=== PATIENT | female | born 1990 | race Caucasian/White ===

== ENCOUNTER 2018-02-24 12:31 | Emergency (ER) | payer SELFPAY, OTHER ==
[2018-02-24 15:05] LABS: ADD MAN DIFF? NO
[2018-02-24 15:08] LABS: BASO % 0 % (0-3); EOS # 0.3 x10^3/uL (0.0-0.7); EOS % 3 % (0-3); HEMOGLOBIN 13.5 g/dL (12.0-15.5); LYMPH # 1.4 x10^3/uL (1.0-4.8); LYMPH % 14 % (24-48); MEAN CORPUSCULAR HEMOGLOBIN 28 pg (25-35); MEAN CORPUSCULAR HGB CONC 33 g/dL (31-37); MEAN CORPUSCULAR VOLUME 86 fL (79-100); MONO # 0.5 x10^3/uL (0.0-1.1); MONO % 5 % (0-9); NEUT # 7.9 x10^3uL (1.8-7.7); NEUT % 78 % (31-73); PLATELET COUNT 233 x10^3/uL (140-400); RED CELL DISTRIBUTION WIDTH 14.4 % (11.5-14.5); WHITE BLOOD COUNT 10.1 x10^3/uL (4.0-11.0)
[2018-02-24 15:19] LABS: ANION GAP 10 (6-14); BLOOD UREA NITROGEN 14 mg/dL (7-20); BUN/CREATININE RATIO 18 (6-20); CALCIUM 9.4 mg/dL (8.5-10.1); CARBON DIOXIDE 26 mmol/L (21-32); CHLORIDE 103 mmol/L (98-107); CREATININE 0.8 mg/dL (0.6-1.0); GFR 85.4; GLUCOSE 103 mg/dL (70-99); POTASSIUM 4.1 mmol/L (3.5-5.1); SODIUM 139 mmol/L (136-145)
[2018-02-24 15:22] LABS: URINE HCG POC HCG NEGATIVE (Negative)
[2018-02-24 15:25] LABS: ALBUMIN 3.9 g/dL (3.4-5.0); ALBUMIN/GLOBULIN RATIO 0.9 (1.0-1.7); ALK PHOS 84 U/L (46-116); ALT (SGPT) 22 U/L (14-59); AST (SGOT) 16 U/L (15-37); TOTAL BILIRUBIN 0.2 mg/dL (0.2-1.0); TOTAL PROTEIN 8.1 g/dL (6.4-8.2)
[2018-02-24 15:34] LABS: BILIRUBIN,URINE NEGATIVE (NEG); CLARITY,URINE CLEAR; COLOR,URINE YELLOW; GLUCOSE,URINE NEGATIVE (NEG); NITRITE,URINE NEGATIVE (NEG); PH,URINE 6.5; PROTEIN,URINE NEGATIVE (NEG-TRACE); UROBILINOGEN,URINE 0.2 mg/dL (0.2 mg/dL)
[2018-02-24 15:53] LABS: BACTERIA,URINE MANY /HPF (0-FEW); SQUAMOUS EPITHELIAL CELL,UR MOD /LPF; WBC,URINE OCC /HPF (0-4)
== END 2018-02-24 16:15 | disposition home or self-care (01) ==
LOC: ER 12:31
DX: R55 Syncope and collapse (principal); N39.0 Urinary tract infection, site not specified; F41.9 Anxiety disorder, unspecified; F31.9 Bipolar disorder, unspecified
CPT/HCPCS: 36415; 80053; 81001; 81025; 85025; 93005; 99285-25

== ENCOUNTER → 2018-04-28 | Outpatient (CLI) | payer OTHER | END | disposition home or self-care (01) | LOC: KCIC MRI 13:33 | DX: H53.8 Other visual disturbances (principal) | CPT/HCPCS: 70551 ==

== ENCOUNTER 2018-07-01 20:24 | Emergency (ER) | payer OTHER ==
[~2018-07-01] VITALS: Ht 154.9 cm; Wt 104.3 kg
[~2018-07-01 20:24] MED LIST: ARIP2TAB3 PO; BUPR150T8 PO; LORA0.5T96 PO; NITR100C62 PO; RISP2TAB33 PO
--- NOTE | 2018-07-01 21:43 | PHYS DOC ---
Past Medical History Past Medical History: Anxiety, Bipolar Past Surgical History: No Surgical History Alcohol Use: None Drug Use: None Adult General Chief Complaint Chief Complaint: MULTIPLE COMPLAINTS [facility] HPI Patient is a 27 year old female who presents with multiple complaints. The last 12 years patient has had blurred vision. Floaters. Sometimes completely black out vision and bilateral hand tingling. Patient states this happens to 3 times a week. Patient sees a doctor at [facility] for primary care that would ordered an MRI of her head and patient states that the MRI stated that she just has headaches. Patient's visual acuities are 20/25 bilaterally, left eye, right eye. Patient denies nausea or vomiting. Patient denies headaches. She has a history of panic attacks, bipolar, depression, anxiety, and 3 C-sections. She has a family history of diabetes, lupus, and MS. She states that she is also sweating all the time. And has a scheduled appointment with a neurologist in August per her mother. Patient states that times she has become lightheaded and passes out. She states that this has been months since this is happened. Taste that she takes Prozac, Seroquel, lorazepam when necessary, and iron pills. Review of Systems Review of Systems Constitutional: Denies fever or chills [] Eyes: Denies change in visual acuity, redness, or eye pain [] HENT: Denies nasal congestion or sore throat [] Respiratory: Denies cough or shortness of breath [] Cardiovascular: No additional information not addressed in HPI [] GI: Denies abdominal pain, nausea, vomiting, bloody stools or diarrhea [] : Denies dysuria or hematuria [] Musculoskeletal: Denies back pain or joint pain [] Integument: Denies rash or skin lesions [] Neurologic: Denies headache, focal weakness or sensory changes [] All other systems were reviewed and found to be within normal limits, except as documented in this note. Allergies Allergies Allergies Coded Allergies Type Severity Reaction Last Updated Verified No Known Drug Allergies 09/18/14 No Physical Exam Physical Exam Constitutional: Well developed, well nourished, no acute distress, non-toxic appearance. [] HENT: Normocephalic, atraumatic, bilateral external ears normal, oropharynx moist, no oral exudates, nose normal. [] Eyes: PERRLA, EOMI, conjunctiva normal, no discharge. [] Neck: Normal range of motion, no tenderness, supple, no stridor. [] Cardiovascular:Heart rate regular rhythm, no murmur [] Lungs & Thorax: Bilateral breath sounds clear to auscultation [] Abdomen: Bowel sounds normal, soft, no tenderness, no masses, no pulsatile masses. [] Skin: Warm, dry, no erythema, no rash. [] Back: No tenderness, no CVA tenderness. [] Extremities: No tenderness, no cyanosis, no clubbing, ROM intact, no edema. [] Neurologic: Alert and oriented X 3, normal motor function, normal sensory function, no focal deficits noted. [] Psychologic: Affect normal, judgement normal, mood normal. [] Current Patient Data Vital Signs Vital Signs Date Time Temp Pulse Resp B/P (MAP) Pulse Ox O2 Delivery O2 Flow Rate FiO2 07/01/18 22:30 75 18 122/63 (82) 98 07/01/18 21:33 97.9 Room Air 97.9 Lab Values Laboratory Tests Test 07/01/18 21:17 07/01/18 21:23 07/01/18 22:05 Urine Opiates Screen Neg (NEG) Urine Methadone Screen Neg (NEG) Urine Barbiturates Neg (NEG) Urine Phencyclidine Screen Neg (NEG) Urine Amphetamine/Methamphetamine Neg (NEG) Urine Benzodiazepines Screen Neg (NEG) Urine Cocaine Screen Neg (NEG) Urine Cannabinoids Screen Neg (NEG) Urine Ethyl Alcohol Neg (NEG) POC Urine HCG, Qualitative Hcg negative (Negative) White Blood Count 8.3 x10^3/uL (4.0-11.0) Red Blood Count 4.47 x10^6/uL (3.50-5.40) Hemoglobin 12.8 g/dL (12.0-15.5) Hematocrit 37.8 % (36.0-47.0) Mean Corpuscular Volume 85 fL (79-100) Mean Corpuscular Hemoglobin 29 pg (25-35) Mean Corpuscular Hemoglobin Concent 34 g/dL (31-37) Red Cell Distribution Width 14.5 % (11.5-14.5) Platelet Count 238 x10^3/uL (140-400) Neutrophils (%) (Auto) 68 % (31-73) Lymphocytes (%) (Auto) 18 % (24-48) L Monocytes (%) (Auto) 6 % (0-9) Eosinophils (%) (Auto) 7 % (0-3) H Basophils (%) (Auto) 1 % (0-3) Neutrophils # (Auto) 5.6 x10^3uL (1.8-7.7) Lymphocytes # (Auto) 1.5 x10^3/uL (1.0-4.8) Monocytes # (Auto) 0.5 x10^3/uL (0.0-1.1) Eosinophils # (Auto) 0.6 x10^3/uL (0.0-0.7) Basophils # (Auto) 0.0 x10^3/uL (0.0-0.2) Sodium Level 137 mmol/L (136-145) Potassium Level 3.7 mmol/L (3.5-5.1) Chloride Level 103 mmol/L (98-107) Carbon Dioxide Level 26 mmol/L (21-32) Anion Gap 8 (6-14) Blood Urea Nitrogen 10 mg/dL (7-20) Creatinine 0.9 mg/dL (0.6-1.0) Estimated GFR (Cockcroft-Gault) 74.6 BUN/Creatinine Ratio 11 (6-20) Glucose Level 95 mg/dL (70-99) Calcium Level 9.6 mg/dL (8.5-10.1) Total Bilirubin 0.2 mg/dL (0.2-1.0) Aspartate Amino Transferase (AST) 10 U/L (15-37) L Alanine Aminotransferase (ALT) 16 U/L (14-59) Alkaline Phosphatase 77 U/L (46-116) Total Protein 7.9 g/dL (6.4-8.2) Albumin 3.7 g/dL (3.4-5.0) Albumin/Globulin Ratio 0.9 (1.0-1.7) L Laboratory Tests 07/01/18 22:05 Laboratory Tests 07/01/18 22:05 EKG EKG Sinus rhythm[] Interpretation Time: [address] Oliver Radiology/Procedures Radiology/Procedures CT head WO contrast[] Impressions: [facility] [address] [place] [address] IMAGING REPORT Signed PATIENT: MONTSERRAT CROWE ACCOUNT: [id number] : 1990 LOCATION: ER AGE: 27 SEX: F EXAM STATUS: REG ER ORD. PHYSICIAN: JAVI PITT APRN REASON: Syncopal Episodes PROCEDURE: CT HEAD WO CONTRAST CT HEAD WO CONTRAST History: BLURRED VISION, SYNCOPE Comparison: MRI brain exam April 28, 2018, no previous head CT available Technique: Noncontrast CT imaging was performed of the head. Exposure: One or more of the following individualized dose reduction techniques were utilized for this examination: 1. Automated exposure control 2. Adjustment of the mA and/or kV according to patient size 3. Use of iterative reconstruction technique. Findings: No acute extra-axial or parenchymal hemorrhage is identified. There is no significant intra-axial mass effect, midline shift, or extra-axial fluid collection. The cabrales-white differentiation of the major vascular territories is preserved. The ventricles, sulci, and cisterns are within normal limits in size and configuration. The mastoid air cells and the visualized paranasal sinuses are aerated. No acute calvarial abnormality is identified. Impression: 1. No acute intracranial abnormality is identified. Electronically signed by: Rm Macario MD (07/01/2018 10:24 PM) [facility] DICTATED and SIGNED BY: RM MACARIO MD DATE: 07/01/182222 Course & Med Decision Making Course & Med Decision Making Upon examination patient's NIH scale is negative. Patient is neurologically intact. Patient's examination is unremarkable. Patient does not have any tingling or numbness at this time. Patient denies a headache, nausea, vomiting, diarrhea, fever. Patient denies any blurred vision, black out vision, or floaters at this time. Patient denies any dizziness at this time. Lungs are clear to auscultation. Patient to get a CT of the head without contrast in the ED. patient's CT of the head shows no acute findings. Patient's MRI that was done back in April by her primary care showed no acute findings except for chronic migraine headaches. Patient's visual acuities are 20/25 bilaterally, right eye, left eye. Patient is alert and oriented. Patient currently having no symptoms. Patient has a steady gait. Patient to be discharged home with a referral to neurology and ophthalmology for continuation of care. [] Dragon Disclaimer Dragon Disclaimer This electronic medical record was generated, in whole or in part, using a voice recognition dictation system. Departure Departure Impression: Primary Impression: Visual acuity 20/25 Additional Impressions: Visual aura Visual disturbance Visual distortions Disposition: 01 HOME, SELF-CARE Condition: STABLE Referrals: WAYLON POLANCO APRN (PCP) DEBRA VALENCIA MD, THAD A MD Patient Instructions: Visual Disturbances Additional Instructions: Referrals for neurology and ophthalmology been placed. Follow-up as soon as possible. Problem Qualifiers JAVI PITT APRN Jul 01, 2018 21:43 CASSY OLIVER MD Jul 01, 2018 23:54
[2018-07-01 21:58] LABS: AMPHETAMINE/METHAMPHETAMINE NEG (NEG); BARBITURATES NEG (NEG); BENZODIAZEPINES NEG (NEG); CANNABINOIDS NEG (NEG); COCAINE NEG (NEG); METHADONE NEG (NEG); OPIATES NEG (NEG); PHENCYCLIDINE NEG (NEG)
--- NOTE | 2018-07-01 22:15 | EKG ---
[facility] [address] [place] [address] Test Date: 2018-07-01 Test Time: 21:49:03 Pat Name: MONTSERRAT CROWE Department: Room: Gender: F Leveler: SANJUANA : 1990 Requested By: JAVI PITT Order Number: [id number] Reading MD: Rocco Jonas MD Measurements Intervals [place] Rate: 64 P: 26 HI: 154 QRS: 48 QRSD: 72 T: 32 QT: 364 QTc: 379 Interpretive Statements SINUS RHYTHM Electronically Signed On 07-05-2018 10:35:01 CDT by Rocco Jonas MD
[2018-07-01 22:18] LABS: BASO % 1 % (0-3); EOS # 0.6 x10^3/uL (0.0-0.7); EOS % 7 % (0-3); HEMATOCRIT 37.8 % (36.0-47.0); HEMOGLOBIN 12.8 g/dL (12.0-15.5); LYMPH # 1.5 x10^3/uL (1.0-4.8); LYMPH % 18 % (24-48); MEAN CORPUSCULAR HEMOGLOBIN 29 pg (25-35); MEAN CORPUSCULAR HGB CONC 34 g/dL (31-37); MEAN CORPUSCULAR VOLUME 85 fL (79-100); MONO # 0.5 x10^3/uL (0.0-1.1); MONO % 6 % (0-9); NEUT # 5.6 x10^3uL (1.8-7.7); NEUT % 68 % (31-73); PLATELET COUNT 238 x10^3/uL (140-400); RED BLOOD COUNT 4.47 x10^6/uL (3.50-5.40); RED CELL DISTRIBUTION WIDTH 14.5 % (11.5-14.5); WHITE BLOOD COUNT 8.3 x10^3/uL (4.0-11.0)
[2018-07-01 22:26] LABS: CALCIUM 9.6 mg/dL (8.5-10.1); CREATININE 0.9 mg/dL (0.6-1.0); GFR 74.6; POTASSIUM 3.7 mmol/L (3.5-5.1)
--- NOTE | 2018-07-01 22:28 | RAD ---
CT HEAD WO CONTRAST History: BLURRED VISION, SYNCOPE Comparison: MRI brain exam April 28, 2018, no previous head CT available Technique: Noncontrast CT imaging was performed of the head. Exposure: One or more of the following individualized dose reduction techniques were utilized for this examination: 1. Automated exposure control 2. Adjustment of the mA and/or kV according to patient size 3. Use of iterative reconstruction technique. Findings: No acute extra-axial or parenchymal hemorrhage is identified. There is no significant intra-axial mass effect, midline shift, or extra-axial fluid collection. The cabrales-white differentiation of the major vascular territories is preserved. The ventricles, sulci, and cisterns are within normal limits in size and configuration. The mastoid air cells and the visualized paranasal sinuses are aerated. No acute calvarial abnormality is identified. Impression: 1. No acute intracranial abnormality is identified. Electronically signed by: Froilan Taylor MD (07/01/2018 10:24 PM) [facility]
[2018-07-01 22:30] VITALS: BP 122/63
[2018-07-01 22:31] LABS: ALBUMIN 3.7 g/dL (3.4-5.0); ALBUMIN/GLOBULIN RATIO 0.9 (1.0-1.7); TOTAL BILIRUBIN 0.2 mg/dL (0.2-1.0); TOTAL PROTEIN 7.9 g/dL (6.4-8.2)
== END 2018-07-01 22:56 | disposition home or self-care (01) ==
LOC: ER 20:24
DX: H53.8 Other visual disturbances (principal); H43.399 Other vitreous opacities, unspecified eye; R51 Headache; R20.2 Paresthesia of skin; F41.9 Anxiety disorder, unspecified; F31.9 Bipolar disorder, unspecified
CPT/HCPCS: 36415; 70450; 80053; 80307; 81025; 85025; 93005; 99285-25; G0479

== ENCOUNTER 2018-09-03 07:37 | Outpatient (CLI) | payer OTHER ==
[2018-09-03] MEDS ORDERED: LIDOCAINE WITH 8.4% SOD BICARB 3 ML DISP.SYRIN. INJ ONE (07:45)
[2018-09-03 09:47] VITALS: BP 95/52
[2018-09-03 10:00] VITALS: BP 100/53
[2018-09-03 10:27] LABS: CSF PROTEIN 31.2 mg/dL (15.0-45.0)
[2018-09-03 10:30] VITALS: BP 101/43
[2018-09-03 10:43] LABS: CSF CLARITY CLEAR; CSF COLOR COLORLESS; CSF RBC COUNT 10; CSF WBC COUNT 0
--- NOTE | 2018-09-03 17:01 | RAD ---
Fluoroscopically guided lumbar puncture, 09/03/2018: HISTORY: Blurred vision, numbness, possible multiple sclerosis Under local anesthesia, aseptic conditions and fluoroscopic guidance a lumbar puncture was performed at the L2-3 level utilizing a 20-gauge spinal needle. Good clear CSF flow was obtained. The opening pressure was measured at 12 cm of water. A total of 10 cc of CSF was removed and sent to the lab for appropriate studies. The spinal needle was then removed and hemostasis obtained. 1.7 minutes of fluoroscopy time was utilized. One fluoroscopic spot image was recorded. The patient tolerated the procedure well. She will be monitored by nursing personnel for several hours and then discharged if no problems develop. Electronically signed by: Isidoro Pereyra MD (09/03/2018 4:57 PM) [facility]
[2018-09-06 16:16] LABS: ALBUMIN,CSF 16 mg/dL (11-48); ALBUMIN,SERUM 4.2 g/dL (3.5-5.5); CSF IGG INDEX 0.5 (0.0-0.7); IGG,SERUM 1199 mg/dL (700-1600)
[2018-09-13 07:11] LABS: VIRAL CULT FINAL No virus isolated. (.)
== END 2018-09-03 10:40 | disposition home or self-care (01) ==
LOC: RAD 07:37
PROVIDERS: ATTEND Psychiatry & Neurology Neurology with Special Qualifications in Child Neurology
DX: G35 Multiple sclerosis (principal); H53.8 Other visual disturbances; F41.9 Anxiety disorder, unspecified; F31.9 Bipolar disorder, unspecified; H43.399 Other vitreous opacities, unspecified eye; Z79.899 Other long term (current) drug therapy
CPT/HCPCS: 36415; 62270; 82787; 82945; 83873; 83916; 84157; 87071; 87075; 87102; 87252; 89051

== ENCOUNTER → 2020-01-10 | Outpatient (CLI) | payer OTHER ==
--- NOTE | 2020-01-10 14:16 | KCIC ---
CHEST PA LATERAL History: Shortness of air Comparison: None. Findings: 2 views of the chest are submitted. There is no dependent pleural fluid or pneumothorax. Cardiac silhouette is considered within normal limits given technique. There is some mild airspace opacity of the medial right lung base. Impression: 1. There is mild airspace opacity of the medial right lung base possibly mild atelectasis or infiltrate of the right middle lobe. Electronically signed by: Froilan Taylor MD (01/10/2020 2:12 PM) [facility]
== END | disposition home or self-care (01) ==
LOC: KCIC 13:45
PROVIDERS: ATTEND Internal Medicine Critical Care Medicine
DX: R06.02 Shortness of breath (principal)
CPT/HCPCS: 71046

== ENCOUNTER → 2020-01-24 | Outpatient (CLI) | payer OTHER ==
[2020-01-24] MEDS: IOHEXOL 350 MG/ML 100 ML VIAL. IV ONE (12:11)
--- NOTE | 2020-01-24 12:27 | RAD ---
Chest CTA History: Chest pain, shortness of air Technique: After bolus of intravenous contrast, CT imaging was performed of the chest. Multiplanar reconstruction images to include MIP reconstruction images are submitted. Exposure: One or more of the following individualized dose reduction techniques were utilized for this examination: 1. Automated exposure control 2. Adjustment of the mA and/or kV according to patient size 3. Use of iterative reconstruction technique. Comparison: None Findings: There is significant motion degradation, also suboptimal contrast opacification of the more distal branches of pulmonary arteries. No central pulmonary embolism is identified such as in the main or proximal segmental branches, limited accurate characterization of the smaller and more distal branches. There is no pericardial or pleural fluid, lobar infiltrate or pneumothorax. Major airways are patent. There is a small 0.3 cm right middle lobe nodule less likely be of clinical significance in a patient this age. Accurate characterization of the ascending thoracic aorta is limited due to motion. It would be difficult to exclude a dissection flap of the tubular ascending thoracic aorta on this exam although findings more likely to be artifactual. No dissection flap is identified of the descending thoracic aorta. Heart is borderline in size. There is probable hepatic steatosis. There are some small superior right renal calculi, largest estimated 0.4 cm. No significantly enlarged nodes are identified of the chest. There is splenomegaly. Impression: 1. Exam is degraded by motion, no convincing central pulmonary embolism. Accurate characterization of the ascending thoracic aorta is limited due to motion, cannot accurately exclude dissection flap of the ascending thoracic aorta although no significant pericardial fluid. 2. There is probable hepatic steatosis. There is splenomegaly. 3. There is small superior right renal calculi. Electronically signed by: Froilan Taylor MD (01/24/2020 12:24 PM) [id number]
== END ==
LOC: CT 11:35
PROVIDERS: ATTEND Internal Medicine Critical Care Medicine
DX: R07.9 Chest pain, unspecified (principal); R16.1 Splenomegaly, not elsewhere classified; N20.0 Calculus of kidney
CPT/HCPCS: 71275; Q9967

== ENCOUNTER → 2020-12-07 | Outpatient (CLI) | payer OTHER ==
[2020-12-07 11:41] LABS: BASO # 0.1 x10^3/uL (0.0-0.2); BASO % 1 % (0-3); EOS # 0.2 x10^3/uL (0.0-0.7); EOS % 2 % (0-3); HEMATOCRIT 36.7 % (36.0-47.0); HEMOGLOBIN 11.8 g/dL (12.0-15.5); LYMPH # 1.2 x10^3/uL (1.0-4.8); LYMPH % 18 % (24-48); MEAN CORPUSCULAR HEMOGLOBIN 27 pg (25-35); MEAN CORPUSCULAR HGB CONC 32 g/dL (31-37); MEAN CORPUSCULAR VOLUME 83 fL (79-100); MONO # 0.4 x10^3/uL (0.0-1.1); MONO % 6 % (0-9); NEUT # 4.7 x10^3/uL (1.8-7.7); NEUT % 72 % (31-73); PLATELET COUNT 240 x10^3/uL (140-400); RED BLOOD COUNT 4.43 x10^6/uL (3.50-5.40); RED CELL DISTRIBUTION WIDTH 15.8 % (11.5-14.5); WHITE BLOOD COUNT 6.6 x10^3/uL (4.0-11.0)
[2020-12-07 11:57] LABS: FREE T4 0.84 ng/dL (0.76-1.46); THYROID STIM HORMONE (TSH) 1.553 uIU/mL (0.358-3.74)
== END ==
LOC: LAB 11:00
PROVIDERS: ATTEND Obstetrics & Gynecology
DX: N92.0 Excessive and frequent menstruation with regular cycle (principal); N93.9 Abnormal uterine and vaginal bleeding, unspecified
CPT/HCPCS: 36415; 84146; 84439; 84443; 85025